=== PATIENT | female | born 1975 | race Two or more races ===

== ENCOUNTER 2018-11-17 17:58 | Inpatient (IN) | payer MEDICAID ==
[~2018-11-17] VITALS: Ht 160 cm; Wt 60.3 kg
[2018-11-17] MEDS ORDERED: HALOPERIDOL 5 MG TABLET PO PRN (21:45)
[2018-11-17] MEDS ORDERED: ZOLPIDEM TARTRATE 10 MG TABLET PO PRN (21:45)
[2018-11-17] MEDS ORDERED: LORazepam 1 MG TABLET PO PRN (21:45)
[2018-11-17] MEDS ORDERED: PNEUMOCOCCAL VACCINE POLYVALENT 0.5 ML VIAL [PPSV23] IM ONE (23:15)
[2018-11-18 00:33] VITALS: BP 98/60
[2018-11-18 06:25] LABS: GLUCOMETER DEV NAME(LOC) BV2S.; GLUCOSE,POINT OF CARE 89 MG/DL (70-110)
[2018-11-18 07:54] LABS: BASOPHILS % (AUTO) 1.2 % (0.0-2.0); EOSINOPHILS % (AUTO) 5.6 % (1.0-6.0); HEMATOCRIT 32.4 % (36-46); HEMOGLOBIN 10.6 g/dL (12.0-16.0); LYMPHOCYTES # (AUTO) 1.1 K/uL (1.0-4.8); LYMPHOCYTES % (AUTO) 28.4 % (22.0-44.0); MEAN CORPUSCULAR HGB CONC 32.7 G/dL (31.0-37.0); MEAN CORPUSCULAR VOLUME 95 fL (80-100); MONOCYTES # (AUTO) 0.3 K/uL (0.1-1.0); MONOCYTES % (AUTO) 8.7 % (2.0-9.0); NEUTROPHILS # (AUTO) 2.1 K/uL (1.8-7.7); NEUTROPHILS % (AUTO) 56.1 % (40.0-70.0); PLATELET COUNT (AUTO) 272 K/uL (150-450); RED BLOOD CELL COUNT(AUTO) 3.41 MIL/uL (4.00-5.20); RED CELL DISTRIBUTION WIDTH 15.7 % (11.5-14.5)
[2018-11-18 08:02] LABS: HEMOGLOBIN A1C 5.5 % (4.5-6.2)
[2018-11-18 08:28] LABS: ALANINE AMINOTRANSFERASE 19 U/L (12-78); ALBUMIN 3.1 g/dL (3.4-5.0); ALKALINE PHOSPHATASE 59 U/L (46-116); ANION GAP 10 mmol/L (8-16); ASPARTATE AMINOTRANSFERASE 29 U/L (15-37); BILIRUBIN,TOTAL 0.2 mg/dL (0.1-1.0); CALCIUM, TOTAL 8.5 mg/dL (8.8-10.5); CARBON DIOXIDE 26 mmol/L (22-29); CHLORIDE 100 mmol/L (98-107); CHOL/HDL RATIO 1.9 (3.9-5.7); CHOLESTEROL 157 mg/dL (131-200); CREATININE 0.69 mg/dL (0.60-1.30); FREE T4 (FREE THYROXINE) 0.98 ng/dL (0.76-1.46); GLOMERULAR FILTR. RATE CALC > 60 mL/min (>60); GLUCOSE,RANDOM 117 mg/dL (70-110); HCG,QUANTITATIVE < 1 mIU/mL (0-6); HDL CHOLESTEROL 81 mg/dL (40-60); LDL CHOL (CALC.) 68 mg/dL (0-130); SODIUM SERUM 136 mmol/L (136-145); THYROID STIMULATING HORMONE 0.93 uIU/mL (0.36-3.74); TRIGLYCERIDES 38 mg/dL (15-150); UREA NITROGEN, BLOOD 26 mg/dL (7-18)
[2018-11-18 08:29] VITALS: BP 109/71
[2018-11-18] MEDS: RisperiDONE 1 MG TABLET PO SCH ×2 (11:45→17:01)
[2018-11-18 16:14] VITALS: BP 103/60
[2018-11-18] MEDS ORDERED: BENZOCAINE 20% 11.9 GM GEL TP PRN (22:45)
[2018-11-19 05:48] VITALS: BP 101/64
[2018-11-19] MEDS: RisperiDONE 1 MG TABLET PO SCH ×2 (08:00→16:09)
[2018-11-19 08:13] VITALS: BP 107/60
[2018-11-19] MEDS: MUPIROCIN CALCIUM 2% 22 GM OINTMENT NASAL SCH ×2 (13:34→16:09)
[2018-11-19 16:03] VITALS: BP 102/60
[2018-11-20 01:38] VITALS: BP 100/66
[2018-11-20 08:15] VITALS: BP 110/64
[2018-11-20] MEDS: MUPIROCIN CALCIUM 2% 22 GM OINTMENT NASAL SCH ×2 (08:41→16:48)
[2018-11-20] MEDS: RisperiDONE 1 MG TABLET PO SCH ×2 (08:41→16:48)
[2018-11-20 16:00] VITALS: BP 105/64
[2018-11-21 00:28] VITALS: BP 102/68
[2018-11-21] MEDS: RisperiDONE 1 MG TABLET PO SCH ×2 (08:10→16:25)
[2018-11-21] MEDS: MUPIROCIN CALCIUM 2% 22 GM OINTMENT NASAL SCH ×2 (08:11→16:25)
[2018-11-21 08:15] VITALS: BP 104/63
[2018-11-21 16:18] VITALS: BP 100/61
[2018-11-22 06:23] VITALS: BP 129/67
[2018-11-22] MEDS: MUPIROCIN CALCIUM 2% 22 GM OINTMENT NASAL SCH ×2 (08:12→16:41)
[2018-11-22] MEDS: RisperiDONE 1 MG TABLET PO SCH (08:12)
[2018-11-22 09:01] VITALS: BP 107/60
[2018-11-22 16:13] VITALS: BP 123/63
[2018-11-22] MEDS: RisperiDONE 2 MG TABLET PO SCH (16:41)
[2018-11-23 06:18] VITALS: BP 109/60
[2018-11-23] MEDS: RisperiDONE 2 MG TABLET PO SCH ×2 (08:10→16:17)
[2018-11-23] MEDS: MUPIROCIN CALCIUM 2% 22 GM OINTMENT NASAL SCH ×2 (08:11→16:17)
[2018-11-23 08:38] VITALS: BP 109/66
[2018-11-23 16:17] VITALS: BP 103/53
[2018-11-24 01:39] VITALS: BP 104/63
[2018-11-24] MEDS: RisperiDONE 2 MG TABLET PO SCH (08:18)
[2018-11-24 08:24] VITALS: BP 107/67
[2018-11-24 16:23] VITALS: BP 109/67
[2018-11-24] MEDS: RisperiDONE 3 MG TABLET PO SCH (16:51)
[2018-11-25 01:13] VITALS: BP 105/63
[2018-11-25] MEDS: RisperiDONE 3 MG TABLET PO SCH ×2 (08:35→16:16)
[2018-11-25 08:51] VITALS: BP 102/65
[2018-11-25 16:14] VITALS: BP 108/62
[2018-11-25] MEDS ORDERED: RISP3 PO (20:52)
[2018-11-26 00:24] VITALS: BP 113/67
== END 2018-11-26 07:40 | disposition home or self-care (01) | DRG 751 ==
LOC: B2S 21:41
PROVIDERS: ADMIT Psychiatry & Neurology Psychiatry; ATTEND Psychiatry & Neurology Psychiatry
DX: F29 Unspecified psychosis not due to a substance or known physiological condition (principal); D64.9 Anemia, unspecified; F17.200 Nicotine dependence, unspecified, uncomplicated; F60.0 Paranoid personality disorder; F19.10 Other psychoactive substance abuse, uncomplicated; Z59.0 Homelessness
CPT/HCPCS: 83036; 84439; 84443; 87081

== ENCOUNTER 2019-04-17 08:11 | Inpatient (IN) | payer MEDICAID, OTHER ==
[~2019-04-17] VITALS: Ht 165.1 cm; Wt 49.9 kg
[~2019-04-17 08:11] MED LIST: RISP3 PO
[2019-04-17] MEDS ORDERED: RISP2 PO (08:18)
[2019-04-17 08:37] LABS: BASOPHILS % (AUTO) 0.8 % (0.0-2.0); EOSINOPHILS % (AUTO) 1.5 % (1.0-6.0); HEMATOCRIT 32.5 % (36-46); HEMOGLOBIN 10.7 g/dL (12.0-16.0); LYMPHOCYTES # (AUTO) 0.9 K/uL (1.0-4.8); LYMPHOCYTES % (AUTO) 22.7 % (22.0-44.0); MEAN CORPUSCULAR HEMOGLOBIN 29.8 pg (26.0-34.0); MEAN CORPUSCULAR HGB CONC 32.9 G/dL (31.0-37.0); MEAN CORPUSCULAR VOLUME 91 fL (80-100); MONOCYTES # (AUTO) 0.3 K/uL (0.1-1.0); MONOCYTES % (AUTO) 8.6 % (2.0-9.0); NEUTROPHILS # (AUTO) 2.6 K/uL (1.8-7.7); NEUTROPHILS % (AUTO) 66.4 % (40.0-70.0); PLATELET COUNT (AUTO) 318 K/uL (150-450); RED BLOOD CELL COUNT(AUTO) 3.58 MIL/uL (4.00-5.20); RED CELL DISTRIBUTION WIDTH 15.4 % (11.5-14.5)
[2019-04-17 08:47] LABS: ANION GAP 7 mmol/L (8-16); CARBON DIOXIDE 28 mmol/L (22-29); CHLORIDE 99 mmol/L (98-107); CREATININE 0.74 mg/dL (0.60-1.30); GLOMERULAR FILTR. RATE CALC > 60 mL/min (>60); GLUCOSE,RANDOM 102 mg/dL (70-110); POTASSIUM 4.1 mmol/L (3.5-5.1); SODIUM SERUM 134 mmol/L (136-145); UREA NITROGEN, BLOOD 20 mg/dL (7-18)
[2019-04-17 08:58] LABS: ALANINE AMINOTRANSFERASE 25 U/L (12-78); ALBUMIN 3.8 g/dL (3.4-5.0); ALKALINE PHOSPHATASE 69 U/L (46-116); ASPARTATE AMINOTRANSFERASE 40 U/L (15-37); BILIRUBIN,TOTAL 0.3 mg/dL (0.1-1.0); HCG,QUANTITATIVE < 1 mIU/mL (0-6); TOTAL PROTEIN, SERUM 8.6 g/dL (6.4-8.2)
[2019-04-17] MEDS ORDERED: LORazepam 2 MG/ML VIAL IM ONE (09:15)
[2019-04-17] MEDS ORDERED: HALOPERIDOL LACTATE 5 MG/ML VIAL IM ONE (09:15)
[2019-04-17] MEDS ORDERED: DiphenhydrAMINE HCL 50 MG/ML VIAL IM ONE (09:15)
[2019-04-17] MEDS ORDERED: ZOLPIDEM TARTRATE 10 MG TABLET PO PRN (09:30)
[2019-04-17] MEDS ORDERED: LORazepam 2 MG TABLET PO PRN (09:30)
[2019-04-17] MEDS ORDERED: HALOPERIDOL 5 MG TABLET PO PRN (09:30)
[2019-04-17 12:34] VITALS: BP 125/82
[2019-04-17 12:36] VITALS: BP 125/82
[2019-04-17] MEDS ORDERED: INFLUENZA VIRUS VACCINE QVS 2019-20 (3YR+)/PF 60 MCG/0.5 ML SYRINGE IM ONE (13:15)
[2019-04-17 18:19] VITALS: BP 102/68
[2019-04-18 05:09] VITALS: BP 106/65
[2019-04-18] MEDS ORDERED: OMEPRAZOLE 20 MG CAPSULE PO PRN (07:15)
[2019-04-18] MEDS ORDERED: BENZOCAINE/MENTHOL LOZENGE MM PRN (07:15)
[2019-04-18] MEDS ORDERED: MAGNESIUM HYDROXIDE SUSPENSION 30 ML UDCUP PO PRN (07:15)
[2019-04-18] MEDS ORDERED: PETROLATUM,WHITE 28 GM JELLY TP PRN (07:15)
[2019-04-18] MEDS ORDERED: ALBUTEROL SULFATE HFA 90 MCG/PUFF 8 GM INHALER IH PRN (07:15)
[2019-04-18] MEDS ORDERED: ONDANSETRON HCL 4 MG TABLET PO PRN (07:15)
[2019-04-18] MEDS ORDERED: DOCUSATE SODIUM 100 MG CAPSULE PO PRN (07:15)
[2019-04-18] MEDS ORDERED: LOPERAMIDE HCL 2 MG CAPSULE PO PRN (07:15)
[2019-04-18] MEDS ORDERED: BACITRACIN 28.4 GM OINTMENT TP PRN (07:15)
[2019-04-18] MEDS ORDERED: ACETAMINOPHEN 325 MG TABLET PO PRN (07:15)
[2019-04-18] MEDS ORDERED: CloNIDine HCL 0.1 MG TABLET PO PRN (07:15)
[2019-04-18] MEDS ORDERED: MAG HYDROX/AL HYDROX/SIMETH ES 30 ML SUSPENSION UDCUP PO PRN (07:15)
[2019-04-18 08:39] VITALS: BP 102/68
[2019-04-18] MEDS: RisperiDONE 3 MG TABLET PO SCH ×2 (09:29→18:30)
[2019-04-18] MEDS: DIVALPROEX SODIUM 500 MG DR TABLET PO SCH ×2 (09:29→18:29)
[2019-04-18 16:02] VITALS: BP 117/67
[2019-04-19 05:38] VITALS: BP 115/62
[2019-04-19 08:12] VITALS: BP 93/54
[2019-04-19] MEDS: RisperiDONE 3 MG TABLET PO SCH ×2 (08:24→16:24)
[2019-04-19] MEDS: DIVALPROEX SODIUM 500 MG DR TABLET PO SCH ×2 (08:24→16:24)
[2019-04-19 08:35] LABS: CHOL/HDL RATIO 2.3 (3.9-5.7)
[2019-04-19 08:41] LABS: HEMOGLOBIN A1C 5.2 % (4.5-6.2)
[2019-04-19 14:09] VITALS: BP 110/74
[2019-04-19 16:46] VITALS: BP 100/64
[2019-04-20 05:14] VITALS: BP 105/62
[2019-04-20] MEDS: IBUPROFEN 600 MG TABLET PO PRN (06:15)
[2019-04-20 08:19] VITALS: BP 105/58
[2019-04-20] MEDS: RisperiDONE 3 MG TABLET PO SCH ×2 (09:36→17:16)
[2019-04-20] MEDS: DIVALPROEX SODIUM 500 MG DR TABLET PO SCH ×2 (09:36→17:16)
[2019-04-20 16:27] VITALS: BP 108/64
[2019-04-21 00:56] VITALS: BP 107/69
[2019-04-21] MEDS: IBUPROFEN 600 MG TABLET PO PRN (01:00)
[2019-04-21 05:02] VITALS: BP 107/69
[2019-04-21 07:54] LABS: VALPROIC ACID 39 mcg/mL (50-100)
[2019-04-21 08:00] VITALS: BP 114/65
[2019-04-21] MEDS: DIVALPROEX SODIUM 500 MG DR TABLET PO SCH ×2 (08:53→16:59)
[2019-04-21] MEDS: RisperiDONE 3 MG TABLET PO SCH ×2 (08:53→16:59)
[2019-04-21 09:24] LABS: ALANINE AMINOTRANSFERASE 19 U/L (12-78); ALBUMIN 2.8 g/dL (3.4-5.0); ALKALINE PHOSPHATASE 57 U/L (46-116); ANION GAP 8 mmol/L (8-16); ASPARTATE AMINOTRANSFERASE 15 U/L (15-37); BILIRUBIN,TOTAL 0.1 mg/dL (0.1-1.0); CALCIUM, TOTAL 7.9 mg/dL (8.8-10.5); CARBON DIOXIDE 27 mmol/L (22-29); CHLORIDE 100 mmol/L (98-107); CREATININE 0.81 mg/dL (0.60-1.30); GLOMERULAR FILTR. RATE CALC > 60 mL/min (>60); GLUCOSE,RANDOM 86 mg/dL (70-110); PHOSPHORUS 4.2 mg/dL (2.5-4.9); POTASSIUM 4.1 mmol/L (3.5-5.1); SODIUM SERUM 135 mmol/L (136-145); TOTAL PROTEIN, SERUM 7.2 g/dL (6.4-8.2); UREA NITROGEN, BLOOD 22 mg/dL (7-18)
[2019-04-21 19:14] VITALS: BP 108/61
[2019-04-22 05:54] VITALS: BP 101/74
[2019-04-22 08:13] VITALS: BP 114/63
[2019-04-22 08:32] LABS: BASOPHILS % (AUTO) 1.1 % (0.0-2.0); EOSINOPHILS % (AUTO) 6.7 % (1.0-6.0); HEMATOCRIT 30.3 % (36-46); HEMOGLOBIN 10.3 g/dL (12.0-16.0); LYMPHOCYTES # (AUTO) 0.7 K/uL (1.0-4.8); LYMPHOCYTES % (AUTO) 23.4 % (22.0-44.0); MEAN CORPUSCULAR HEMOGLOBIN 30.7 pg (26.0-34.0); MEAN CORPUSCULAR HGB CONC 33.9 G/dL (31.0-37.0); MEAN CORPUSCULAR VOLUME 91 fL (80-100); MONOCYTES # (AUTO) 0.4 K/uL (0.1-1.0); MONOCYTES % (AUTO) 11.8 % (2.0-9.0); NEUTROPHILS # (AUTO) 1.8 K/uL (1.8-7.7); PLATELET COUNT (AUTO) 280 K/uL (150-450); RED BLOOD CELL COUNT(AUTO) 3.35 MIL/uL (4.00-5.20); RED CELL DISTRIBUTION WIDTH 15.7 % (11.5-14.5)
[2019-04-22] MEDS: DIVALPROEX SODIUM 500 MG DR TABLET PO SCH ×2 (08:46→16:33)
[2019-04-22] MEDS: RisperiDONE 3 MG TABLET PO SCH ×2 (08:46→16:33)
[2019-04-22 16:00] VITALS: BP 110/74
[2019-04-23 05:16] VITALS: BP 105/68
[2019-04-23] MEDS: DIVALPROEX SODIUM 500 MG DR TABLET PO SCH ×2 (08:13→16:46)
[2019-04-23] MEDS: RisperiDONE 3 MG TABLET PO SCH ×2 (08:13→16:46)
[2019-04-23 08:33] VITALS: BP 93/56
[2019-04-23 16:22] VITALS: BP 111/66
[2019-04-24 05:21] VITALS: BP 128/74
[2019-04-24 08:10] VITALS: BP 100/61
[2019-04-24] MEDS: RisperiDONE 3 MG TABLET PO SCH ×2 (09:00→16:42)
[2019-04-24] MEDS: DIVALPROEX SODIUM 500 MG DR TABLET PO SCH ×2 (09:01→16:42)
[2019-04-24 19:18] VITALS: BP 100/62
[2019-04-25 05:06] VITALS: BP 116/66
[2019-04-25 08:00] VITALS: BP 114/84
[2019-04-25] MEDS: RisperiDONE 3 MG TABLET PO SCH ×2 (08:25→16:21)
[2019-04-25] MEDS: DIVALPROEX SODIUM 500 MG DR TABLET PO SCH ×2 (08:25→16:21)
[2019-04-25 16:09] VITALS: BP 103/63
[2019-04-25] MEDS ORDERED: DIVA250T4 PO (22:50)
[2019-04-26 05:16] VITALS: BP 105/73
[2019-04-26] MEDS: RisperiDONE 3 MG TABLET PO SCH (08:24)
[2019-04-26] MEDS: DIVALPROEX SODIUM 500 MG DR TABLET PO SCH (08:24)
[2019-04-26 08:26] VITALS: BP 101/61
== END 2019-04-26 13:12 | disposition home or self-care (01) | DRG 750 ==
LOC: EMS 08:12 → B3A 10:15
PROVIDERS: ADMIT Psychiatry & Neurology Psychiatry; ATTEND Psychiatry & Neurology Psychiatry
DX: F20.0 Paranoid schizophrenia (principal); Z59.0 Homelessness; D64.9 Anemia, unspecified; F41.9 Anxiety disorder, unspecified; K59.00 Constipation, unspecified; F19.10 Other psychoactive substance abuse, uncomplicated; G47.00 Insomnia, unspecified; E87.6 Hypokalemia; Z91.14 Patient's other noncompliance with medication regimen; Z88.0 Allergy status to penicillin; Z23 Encounter for immunization
CPT/HCPCS: 83036; 83735; 84100; 90686; 93005; 96372; G0480; J1200; J1630; J2060